=== PATIENT | female | born 1975 | race Caucasian/White ===

== ENCOUNTER 2017-04-18 08:53 | Emergency (ER) | payer BC ==
[2017-04-18 09:48] LABS: Hematocrit 43.2 % (36.0-47.0); Mean Platelet Volume 7.7 fL (7.4-10.4); Red Blood Cell (RBC) Count 4.38 mill/uL (4.20-5.40); White Blood Cell (WBC) Count 20.5 thou/uL (4.8-10.8)
[2017-04-18 10:09] LABS: ALT (SGPT) 7 U/L (8-55); AST (SGOT) 12 U/L (5-34); Alkaline Phosphatase 101 U/L (40-150); Anion Gap 15 mmol/L (10-20); BUN (Urea Nitrogen) 13 mg/dL (7.0-18.7); Bilirubin, Total 0.4 mg/dL (0.2-1.2); Calc. Creatinine Clearance 0 mL/min (70-130); Calcium 9.5 mg/dL (7.8-10.44); Carbon Dioxide 25 mmol/L (22-29); Chloride 101 mmol/L (98-107); Estimated GFR-MDRD Greater than 90; Protein, Total 6.9 g/dL (6.0-8.3)
[2017-04-18 10:16] LABS: Band 1 % (5-11); Metamyelocyte 1 % (0-0); Neutrophil 73 % (42-75); Reactive Lymphocytes 5 % (0-10)
--- NOTE | 2017-04-18 10:22 | CT ---
CT OF BRAIN PERFORMED WITHOUT CONTRAST ENHANCEMENT: HISTORY: Seizure activity. FINDINGS: The ventricular and cisternal system is within normal limits. There are no signs of intracerebral h emorrhage or extraaxial fluid collections. Mastoid air cells and visualized sinuses are clear. IMPRESSION: No acute intracranial abnormalities. POS: [facility]
[2017-04-18] MEDS ORDERED: Dexamethasone 4 mg/ml Vial ONE (10:37)
[2017-04-18] MEDS ORDERED: cefTRIAXone\\ROCEPHIN 1 GM VIAL ONE (10:37)
[2017-04-18] MEDS ORDERED: Azithromycin 250 MG TAB PO SCH (11:15)
[2017-04-18 11:32] LABS: Bilirubin Negative (Negative); Blood, Urine Moderate (Negative); Glucose, Urine (Dipstick) Negative (Negative); Ketone, Urine Negative (Negative); Nitrite Negative (Negative); Protein, Urine (Dipstick) Negative (Neg-Trace)
[2017-04-18 11:34] LABS: Bacteria/HPF None Seen HPF (None Seen); Hyaline Casts/LPF 0-3 HYALINE CAST LPF (0-3 Hyaline); Squamous Epithelial 0-3 HPF (0-3)
[2017-04-18 12:25] LABS: Lactic Acid - Sepsis 1.8 mmol/L (0.5-2.2)
--- NOTE | 2017-04-18 12:25 | RAD ---
PA AND LATERAL CHEST: Date: 04/18/17 HISTORY: Cough. Seizure activity. FINDINGS: Heart size is borderline. Mediastinal structures are unremarkable. Lungs are clear of infiltrates. IMPRESSION: Borderline cardiomegaly. POS: [facility]
== END 2017-04-18 12:14 | disposition home or self-care (01) ==
LOC: ERS 08:53
DX: J40 Bronchitis, not specified as acute or chronic (principal); R55 Syncope and collapse; E78.5 Hyperlipidemia, unspecified; I10 Essential (primary) hypertension; E11.9 Type 2 diabetes mellitus without complications; F41.9 Anxiety disorder, unspecified; F17.210 Nicotine dependence, cigarettes, uncomplicated; Z79.84 Long term (current) use of oral hypoglycemic drugs; Z79.899 Other long term (current) drug therapy; Z79.52 Long term (current) use of systemic steroids
CPT/HCPCS: 36415; 70450; 71020; 80053; 81003; 81015; 83605; 84146; 85025; 94640; 94760; 96365; 96375; J0696; J1100; J7620